=== PATIENT | male | born 1955 | race Caucasian/White ===

== ENCOUNTER → 2019-02-03 | Outpatient (CLI) | payer OTHER ==
[~2019-02-03] MED LIST: LISI-170 PO
[2019-02-03 09:27] LABS: MICROSCOPIC NOT IND
[2019-02-03 09:30] LABS: CULTURE INDICATED? NO
[2019-02-03 09:34] LABS: INTERNATIONAL NORMALIZED RATIO 0.97 (0.93-1.1); PROTHROMBIN TIME 10.2 Seconds (9.6-11.5)
[2019-02-03 09:35] LABS: ALANINE AMINOTRANSFERASE 19 U/L (12-78); ALBUMIN 4.2 g/dL (3.4-5.0); ANION GAP 4 mmol/L (5-15); CALCIUM 9.4 mg/dL (8.5-10.1); CHLORIDE 100 mmol/L (98-107); CREATININE 0.61 mg/dL (0.7-1.3)
[2019-02-03 09:38] LABS: ALKALINE PHOSPHATASE 65 U/L (45-117); BILIRUBIN,TOTAL 0.8 mg/dL (0.2-1.0); TOTAL PROTEIN 7.3 g/dL (6.4-8.2)
[2019-02-03 09:40] LABS: BASOPHILS % (AUTO) 1 % (0-1); EOSINOPHILS # (AUTO) 0.13 x10^3/uL (0-0.4); EOSINOPHILS % (AUTO) 2 % (1-7); LYMPHOCYTES # (AUTO) 1.68 x10^3/uL (1-3.4); LYMPHOCYTES % (AUTO) 22 % (22-44); MD NO; MEAN CORPUSCULAR HGB CONC 33.3 g/dL (33.2-36.2); MEAN CORPUSCULAR VOLUME 96.2 fL (81-97); MEAN PLATELET VOLUME 7.4 fL (7.4-10.4); MONOCYTES # (AUTO) 0.92 x10^3/uL (0.2-0.8); MONOCYTES % (AUTO) 12 % (2-9); NEUTROPHILS # (AUTO) 4.84 x10^3/uL (1.8-6.8); NEUTROPHILS % (AUTO) 63 % (42-75); PLATELET COUNT 242 x10^3/uL (130-400); RED BLOOD COUNT 5.27 x10^6/uL (4.38-5.82); RED CELL DISTRIBUTION WIDTH 13.1 % (9.4-14.8)
== END | disposition home or self-care (01) ==
LOC: STAR 08:32
PROVIDERS: ATTEND Neurological Surgery
DX: Z01.818 Encounter for other preprocedural examination (principal); M51.85 Other intervertebral disc disorders, thoracolumbar region
CPT/HCPCS: 36415; 71046; 80053; 81003; 85025; 85610; 85730; 93005

== ENCOUNTER 2019-02-11 05:17 | Day surgery (SDC) | payer OTHER ==
[~2019-02-11] VITALS: Ht 180.3 cm; Wt 65.0 kg
[2019-02-11] MEDS ORDERED: VANCOMYCIN 1,000 MG ONE (06:03)
[2019-02-11] MEDS ORDERED: BACITRACIN 50,000 UNIT ONE (06:03)
[2019-02-11] MEDS ORDERED: THROMBIN 5,000 UNIT VIAL TP ONE (06:03)
[2019-02-11] MEDS ORDERED: BUPIVACAINE/PF-EPI 0.5% 1:200K ONE (06:03)
[2019-02-11 06:06] VITALS: BP 139/84
[2019-02-11] MEDS ORDERED: LACTATED RINGERS 1,000 ML IV SCH (06:09)
[2019-02-11] MEDS ORDERED: MIDAZOLAM 1 MG/ML, 2ML ONE (06:46)
[2019-02-11] MEDS ORDERED: FENTANYL PF 250 MCG/5ML ONE (06:46)
[2019-02-11] MEDS ORDERED: SUCCINYLCHOLINE 20 MG/ML, 10ML ONE (06:47)
[2019-02-11] MEDS ORDERED: ROCURONIUM 10MG/ML,5ML ONE (06:47)
[2019-02-11] MEDS ORDERED: GLYCOPYRROLATE 0.2MG/1ML, 5ML ONE (06:47)
[2019-02-11] MEDS ORDERED: CEFAZOLIN 1,000 MG ONE (06:47)
[2019-02-11] MEDS ORDERED: DEXAMETHASONE 4 MG/ML, 1ML ONE (06:47)
[2019-02-11] MEDS ORDERED: PROPOFOL 10 MG/ML, 20ML ONE (06:47)
[2019-02-11] MEDS ORDERED: ONDANSETRON 2MG/ML, 2ML ONE (06:47)
[2019-02-11] MEDS ORDERED: NEOSTIGMINE 1 MG/ML, 10ML ONE (06:47)
[2019-02-11] MEDS ORDERED: LIDOCAINE-MPF 2% ,5ML ONE (06:48)
[2019-02-11] MEDS ORDERED: OXYcodone IR 5MG TABLET PO ONE (07:00)
[2019-02-11] MEDS ORDERED: GABAPENTIN 300 MG CAPSULE PO ONE (07:00)
[2019-02-11] MEDS ORDERED: ACETAMINOPHEN 500 MG TABLET PO ONE (07:00)
[2019-02-11] MEDS ORDERED: ALBUTEROL HFA 90 MCG/SPRAY ONE (07:19)
[2019-02-11] MEDS ORDERED: OXYcodone 5 MG/5 ML ORAL.SOL UDC ONE (08:16)
[2019-02-11] MEDS ORDERED: ALBUTEROL/IPRATROPIUM 2.5MG/0.5MG, 3 ML NPPB PRN (08:30)
[2019-02-11] MEDS ORDERED: OXYcodone 5 MG/5 ML ORAL.SOL UDC PO PRN (08:30)
[2019-02-11] MEDS ORDERED: LABETALOL 5MG/ML, 20ML IV PRN (08:30)
[2019-02-11] MEDS ORDERED: PROMETHAZINE 25 MG/ML, 1ML IV PRN (08:30)
[2019-02-11] MEDS ORDERED: ONDANSETRON ODT 8 MG PO PRN (08:30)
[2019-02-11] MEDS ORDERED: FENTANYL PF 100 MCG/2ML IV PRN (08:30)
[2019-02-11] MEDS ORDERED: HYDROmorphone 2 MG/ML, 1ML IVPush PRN (08:30)
[2019-02-11] MEDS ORDERED: hydrALAzine 20 MG/ML, 1ML IV PRN (08:30)
[2019-02-11] MEDS ORDERED: MEPERIDINE/PF 25MG/0.5ML IVPush PRN (08:30)
[2019-02-11] MEDS ORDERED: LORazepam 2 MG/ML, 1ML IVPush PRN (08:30)
[2019-02-11] MEDS ORDERED: ONDANSETRON 2MG/ML, 2ML IV PRN (08:30)
[2019-02-11] MEDS ORDERED: METHOCARBAMOL 1,000 MG in DEXTROSE 5% 100 ML IV ONE (09:00)
== END 2019-02-11 12:15 | disposition home or self-care (01) ==
LOC: OUT 05:17
PROVIDERS: ATTEND Neurological Surgery
DX: M51.16 Intervertebral disc disorders with radiculopathy, lumbar region (principal); F41.9 Anxiety disorder, unspecified; F17.210 Nicotine dependence, cigarettes, uncomplicated; Z98.890 Other specified postprocedural states; Z72.89 Other problems related to lifestyle
CPT/HCPCS: 63030; 63035; 72100; J0330; J0690; J1100; J2250; J2405; J2704; J2710; J2800; J3010; J3370; J7120